=== PATIENT | male | born 1985 | race Caucasian/White ===

== ENCOUNTER 2018-10-18 09:37 | Emergency (ER) | payer OTHER, SELFPAY ==
[2018-10-18] MEDS ORDERED: ATROVENT IH ONE (11:19)
[2018-10-18] MEDS ORDERED: PROVENTIL IH ONE (11:19)
[2018-10-18] MEDS ORDERED: SOLU-Medrol IV ONE (11:19)
--- NOTE | 2018-10-18 11:19 | Emergency Department Report ---
HPI - General Chief Complaint: Upper Respiratory Infection Time Seen by Provider: 10/18/18 10:36 - HPI HPI: Interpretive service available This is a 33 yo male presented to ed with cough and difficulty breathing. He says that he had similar symptoms 2 weeks ago and he was admitted and sent home on albuterol, Levaquin and prednisone. Patient reports that he is having tightness similar to previous attack. He denies any medical problems. Denies any fever or chills. Denies any nausea or vomiting. Denies any abdominal pain or back pain. He reports that he has nasal congestion with runny nose and cough is worse at night. He did not follow up with a primary care physician. Denies smoking in or have any history of asthma or bronchitis. Patient previous note reflects that he had acute asthma. ED Past Medical Hx - Past Medical History Previous Medical History?: Yes Hx Congestive Heart Failure: No Hx Diabetes: No Hx Asthma: Yes Hx COPD: No - Surgical History Past Surgical History?: No - Family History Family history: no significant - Social History Smoking Status: Never Smoker Substance Use Type: None - Medications Home Medications: Home Medications Medication Instructions Recorded Confirmed Last Taken Type ALBUTEROL Inhaler(NF) [VENTOLIN 1 puff IH Q4H 30 Days #1 inha 08/21/18 Unknown Rx Inhaler(NF)] Budesonide/Formoterol Fumarate 10.2 gm IH BID 30 Days #1 08/21/18 Unknown Rx [Symbicort 160-4.5 Mcg Inhaler] hfa.aer.ad levoFLOXacin [Levaquin TAB] 750 mg PO Q24HR #3 tablet 08/21/18 Unknown Rx predniSONE [Deltasone] 50 mg PO QDAY #5 tab 08/21/18 Unknown Rx Albuterol Sulfate [Albuterol 0.63% 0.63 mg IH TID PRN #1 box 10/18/18 Unknown Rx NEBS] Ciprofloxacin HCl [Ciprofloxacin 500 mg PO Q12H #14 tab 10/18/18 Unknown Rx TAB] Ipratropium [Atrovent NEB] 0.5 mg IH Q8HRT #1 box 10/18/18 Unknown Rx Nebulizer and Compressor [Easy Air 1 each MC TID PRN #1 each 10/18/18 Unknown Rx Compressor Nebulizer] Prednisone [predniSONE 10 mg 10 mg PO .TAPER #1 tab.ds.pk 10/18/18 Unknown Rx (6-Day Pack, 21 Tabs)] ED Review of Systems ROS: Stated complaint: SHARRI/COUGHING Other details as noted in HPI Constitutional: denies: chills, fever Eyes: denies: eye discharge ENT: congestion (and they think if these develop physical work in a different hospital they wind shifted that they are doing fentanyl and patient was admitted 2 weeks ago for 3 days and come back with the same symptoms.). denies: ear pain, throat pain Respiratory: cough, shortness of breath. denies: SOB with exertion, SOB at rest, stridor (been on no wide Ntoday), wheezing Cardiovascular: denies: chest pain, palpitations, dyspnea on exertion, edema, syncope Gastrointestinal: denies: abdominal pain, nausea, vomiting Musculoskeletal: denies: back pain, joint swelling, arthralgia, myalgia Skin: denies: rash Neurological: denies: headache Physical Exam - Physical Exam Vital Signs: Vital Signs 10/18/18 09:49 Temperature 98.0 F Pulse Rate 84 Respiratory 18 Rate Blood Pressure 146/98 O2 Sat by Pulse 98 Oximetry General: This is a 33-year-old male well-nourished well-developed in mild distress. Physical Exam: Head: Normocephalic atraumatic Ears:BIateral TM congested without erythema and loss of bony landmarks. Aníbal EAC with normal exam. No mastoid bone tenderness. Mouth: Moist, no pharyngeal erythema or exudate . . UVULA midline and oral airways patent. No peritonsillar abscess Neck: Nontender to palpate, supple, normal range of motion. No adenopathy. No c- spine tenderness. Nose: Bilateral nasal mucosa congested/erythema with clear drainage. Maxillary and frontal sinuses non- tender to palpate. Eyes: Bilateral Sclerae and conjunctiva without injection. Bilateral pupils equal and reactive to light. Bilateral lids are normal. Normal accommodation.BEOMI Lungs: Wheezes in and rhonchi throughout lung hernandez with congested cough. Mild increased work of breathing . No chest wall tenderness CV: S1, S2. Regular rate and rhythm negative murmur. Capillary refill is less than 3 seconds Abdomen: Nontender to palpation in all quadrants: No guarding or rebound tenderness. Positive bowel sounds in all quadrants Extremity: No clubbing, cyanosis or edema. +2 pulses in all extremities and no neurovascular compromise Skin: Clean dry and intact, no rashes or lesions Psych: Normal mood and behavior ED Course Vital Signs 10/18/18 09:49 Temperature 98.0 F Pulse Rate 84 Respiratory 18 Rate Blood Pressure 146/98 O2 Sat by Pulse 98 Oximetry Vital Signs 10/18/18 10/18/18 10/18/18 09:49 11:38 14:11 Temperature 98.0 F 98.4 F Pulse Rate 84 89 Respiratory 18 22 20 Rate Blood Pressure 146/98 Blood Pressure 136/74 [Left] O2 Sat by Pulse 98 97 94 Oximetry - Reevaluation(s) Reevaluation #1: 10/18/18 12:39 Patient started on albuterol and Atrovent nebulizer and still going. Still with wheezes in and cough. Will start magnesium sulfate IV Reevaluation #2: 10/18/18 15:00 Patient not better after nebulizer and magnesium. He still wheezing and coughing. Decision to admit. I spoke with Dr. Kimble and he will see patient Labs order along with ABG. Reevaluation #3: 10/18/18 17:41 Patient ultrasound is better in 2 L nasal cannula. ABGs done and noted. Dr. Kimble assumed care of patient and will decide whether the patient will be admitted or will go home. Patient is stable and in no acute distress at present. He still has expiratory wheezes and upper lung hernandez. ED Medical Decision Making - Lab Data Result diagrams: 10/18/18 14:52 10/18/18 14:52 Lab Results 10/18/18 10/18/18 10/18/18 Range/Units 14:52 14:52 14:52 WBC 7.5 (4.5-11.0) K/mm3 RBC 5.13 H (3.65-5.03) M/mm3 Hgb 15.9 H (11.8-15.2) gm/dl Hct 48.4 H (35.5-45.6) % MCV 94 (84-94) fl MCH 31 (28-32) pg MCHC 33 (32-34) % RDW 13.6 (13.2-15.2) % Plt Count 385 (140-440) K/mm3 Lymph % (Auto) 13.7 (13.4-35.0) % [place] % (Auto) 1.8 (0.0-7.3) % Eos % (Auto) 7.9 H (0.0-4.3) % Baso % (Auto) 0.5 (0.0-1.8) % Lymph # 1.0 L (1.2-5.4) K/mm3 [place] # 0.1 (0.0-0.8) K/mm3 Eos # 0.6 H (0.0-0.4) K/mm3 Baso # 0.0 (0.0-0.1) K/mm3 Seg Neutrophils % 76.1 H (40.0-70.0) % Seg Neutrophils # 5.7 (1.8-7.7) K/mm3 POC ABG pH (7.35-7.45) POC ABG pCO2 (35-45) POC ABG pO2 (80-105) POC ABG HCO3 POC ABG Total CO2 POC ABG O2 Sat POC ABG Base Excess VBG pH 7.325 (7.320-7.420) FiO2 % Sodium 140 (137-145) mmol/L Potassium 3.4 L (3.6-5.0) mmol/L Chloride 101.3 (98-107) mmol/L Carbon Dioxide 25 (22-30) mmol/L Anion Gap 17 mmol/L BUN 17 (9-20) mg/dL Creatinine 0.6 L (0.8-1.5) mg/dL Estimated GFR > 60 ml/min BUN/Creatinine Ratio 28 % Glucose 178 H (75-100) mg/dL Calcium 9.0 (8.4-10.2) mg/dL Total Bilirubin 0.40 (0.1-1.2) mg/dL AST 22 (5-40) units/L ALT 22 (7-56) units/L Alkaline Phosphatase 135 H (35-129) units/L Total Protein 7.5 (6.3-8.2) g/dL Albumin 4.6 (3.9-5) g/dL Albumin/Globulin Ratio 1.6 % 10/18/18 Range/Units 15:26 WBC (4.5-11.0) K/mm3 RBC (3.65-5.03) M/mm3 Hgb (11.8-15.2) gm/dl Hct (35.5-45.6) % MCV (84-94) fl MCH (28-32) pg MCHC (32-34) % RDW (13.2-15.2) % Plt Count (140-440) K/mm3 Lymph % (Auto) (13.4-35.0) % [place] % (Auto) (0.0-7.3) % Eos % (Auto) (0.0-4.3) % Baso % (Auto) (0.0-1.8) % Lymph # (1.2-5.4) K/mm3 [place] # (0.0-0.8) K/mm3 Eos # (0.0-0.4) K/mm3 Baso # (0.0-0.1) K/mm3 Seg Neutrophils % (40.0-70.0) % Seg Neutrophils # (1.8-7.7) K/mm3 POC ABG pH 7.356 (7.35-7.45) POC ABG pCO2 37.7 (35-45) POC ABG pO2 65 L (80-105) POC ABG HCO3 21.1 POC ABG Total CO2 22 POC ABG O2 Sat 92 POC ABG Base Excess -4 VBG pH (7.320-7.420) FiO2 21 % Sodium (137-145) mmol/L Potassium (3.6-5.0) mmol/L Chloride (98-107) mmol/L Carbon Dioxide (22-30) mmol/L Anion Gap mmol/L BUN (9-20) mg/dL Creatinine (0.8-1.5) mg/dL Estimated GFR ml/min BUN/Creatinine Ratio % Glucose (75-100) mg/dL Calcium (8.4-10.2) mg/dL Total Bilirubin (0.1-1.2) mg/dL AST (5-40) units/L ALT (7-56) units/L Alkaline Phosphatase (35-129) units/L Total Protein (6.3-8.2) g/dL Albumin (3.9-5) g/dL Albumin/Globulin Ratio % - Radiology Data Radiology results: report reviewed X-ray 2 views dictated by radiologist and report reviewed by myself. Please see details below Findings [facility] [address] [place] [address] XRay Report Signed Patient: ALYSSA MELCHOR MR#: [id number] : 1985 Acct:[id number] Age/Sex: 33 / M ADM Date: 10/18/18 Loc: ED Attending Dr: Ordering Physician: JOVAN BERNABE Date of Service: 10/18/18 Procedure(s): XR chest routine 2V Accession Number(s): [id number] cc: JOVAN BERNABE Fluoro Time In Minutes: FINAL REPORT EXAM: XR CHEST ROUTINE 2V HISTORY: cough ?2 months TECHNIQUE: Two view chest PA and lateral PRIORS: None. FINDINGS: Cardiac and mediastinal contours are unremarkable. No focal pulmonary infiltrate is identified. No pleural fluid collection seen. Pulmonary vasculature is unremarkable. IMPRESSION: Negative two-view chest Transcribed By: CAESAR Dictated By: LARY RAMAN MD Electronically Authenticated By: LARY RAMAN MD Signed Date/Time: 10/18/181653 DD/ 52 TD/TT: 10/18/181652 - Medical Decision Making This is a 33-year-old male here reported that he is having cough and wheezing shortness of breath and he had similar episode a couple months ago where was admitted in the hospital. Please see notes for details Chest [id number] findings Labs: Patient had CBC, CMP, venous pH and CBC done and mild abdomen minor abnormalities noted in Dr. Kimble reviewed. Assessment/plan Bronchospasm recurrent-patient given albuterol 10 mg nebulizer, Atrovent 1 mg nebulizer and Solu-Medrol 1 injection 25 mg IV and upon reevaluation lung sounds are better but he still will reason. Patient pulse ox dropped to 94% he is not using his intercostal muscles or his work of breathing is back to normal. He was placed on 2 L nasal cannula and Dr. Kimble assume care of patient and is making decisions on patient disposition. - Differential Diagnosis PNA, PE, asthma versus bronchitis, URI with cough and congestion Critical care attestation.: If time is entered above; I have spent that time in minutes in the direct care of this critically ill patient, excluding procedure time. ED Disposition Clinical Impression: Bronchospasm with bronchitis, acute, URI with cough and congestion Disposition: OP ADMIT IP TO THIS HOSP Is pt being admited?: Yes Does the pt Need Aspirin: Yes Condition: Stable Prescriptions: Albuterol Sulfate [Albuterol 0.63% NEBS] 0.63 mg IH TID PRN #1 box PRN Reason: Wheezing Ciprofloxacin HCl [Ciprofloxacin TAB] 500 mg PO Q12H #14 tab Ipratropium [Atrovent NEB] 0.5 mg IH Q8HRT #1 box Nebulizer and Compressor [Easy Air Compressor Nebulizer] 1 each MC TID PRN #1 each PRN Reason: Wheezing Prednisone [predniSONE 10 mg (6-Day Pack, 21 Tabs)] 10 mg PO .TAPER #1 tab.ds.pk [facility] [Primary Care Provider] - 3-5 Days
[2018-10-18] MEDS ORDERED: MAGNESIUM SULFATE 2GM/50ML 2 GM/50 ML BAG IV ONE (12:41)
[2018-10-18 15:08] LABS: Basophils % (Auto) 0.5 % (0.0-1.8); Eosinophils # (Auto) 0.6 K/mm3 (0.0-0.4); Eosinophils % (Auto) 7.9 % (0.0-4.3); Hematocrit 48.4 % (35.5-45.6); Hemoglobin 15.9 gm/dl (11.8-15.2); Lymphocytes % (Auto) 13.7 % (13.4-35.0); Mean Corpuscular HGB Conc 33 % (32-34); Mean Corpuscular Volume 94 fl (84-94); Monocytes # (Auto) 0.1 K/mm3 (0.0-0.8); Monocytes % (Auto) 1.8 % (0.0-7.3); Platelet Count 385 K/mm3 (140-440); Red Blood Count 5.13 M/mm3 (3.65-5.03); Red Cell Distribution Width 13.6 % (13.2-15.2)
[2018-10-18 15:17] LABS: Alanine Aminotransferase 22 units/L (7-56); Albumin 4.6 g/dL (3.9-5); BUN/Creatinine Ratio 28; Blood Urea Nitrogen 17 mg/dL (9-20); Hemolysis Index 6
[2018-10-18 15:31] VITALS: BP 122/70
--- NOTE | 2018-10-18 16:54 | XRay Report ---
FINAL REPORT EXAM: XR CHEST ROUTINE 2V HISTORY: cough ?2 months TECHNIQUE: Two view chest PA and lateral PRIORS: None. FINDINGS: Cardiac and mediastinal contours are unremarkable. No focal pulmonary infiltrate is identified. No pleural fluid collection seen. Pulmonary vasculature is unremarkable. IMPRESSION: Negative two-view chest
[2018-10-18] MEDS ORDERED: LEVAQUIN 750MG/150ML 750 MG/150 ML BAG IV ONE (19:03)
--- NOTE | 2018-10-18 19:08 | Event Note ---
Date: 10/18/18 33 YO Male presents to ED for Evaluation. Pt seen and evaluated in ED and found to have Asthma Exacerbation. Pt treated with supportive care with resolution of symptoms. Pt medically optimized and back to usual state of health. Pt discharged home and instructed to F/U pcp 1wk, and Pulmonary prn. Head: Normocephalic atraumatic Ears:BIateral TM congested without erythema and loss of bony landmarks. Aníbal EAC with normal exam. No mastoid bone tenderness. Mouth: Moist, no pharyngeal erythema or exudate . . UVULA midline and oral airways patent. No peritonsillar abscess Neck: Nontender to palpate, supple, normal range of motion. No adenopathy. No c- spine tenderness. Nose: Bilateral nasal mucosa congested/erythema with clear drainage. Maxillary and frontal sinuses non- tender to palpate. Eyes: Bilateral Sclerae and conjunctiva without injection. Bilateral pupils equal and reactive to light. Bilateral lids are normal. Normal accommodation.BEOMI Lungs: CTA Bilaterally CV: S1, S2. Regular rate and rhythm negative murmur. Capillary refill is less than 3 seconds Abdomen: Nontender to palpation in all quadrants: No guarding or rebound tenderness. Positive bowel sounds in all quadrants Extremity: No clubbing, cyanosis or edema. +2 pulses in all extremities and no neurovascular compromise Skin: Clean dry and intact, no rashes or lesions Psych: Normal mood and behavior
[2018-10-18] MEDS ORDERED: PROVENTIL IH SCH (20:00)
[2018-10-18] MEDS ORDERED: ZOFRAN ONE (20:13)
[2018-10-18] MEDS ORDERED: ZOFRAN IV ONE (20:19)
--- NOTE | 2018-10-18 21:31 | Cat Scan Report ---
FINAL REPORT EXAM: CT ANGIO CHEST HISTORY: wheezing TECHNIQUE: CT chest CT angiogram with reconstructions PRIORS: None. FINDINGS: There is no evidence of filling defect within the central pulmonary vasculature to suggest the presen ce of acute pulmonary embolus. No evidence of mediastinal pathologic lymph node enlargement Heart and great vessels are unremarkable. The aorta is normal in caliber. No focal pulmonary infiltrate identified. No pleural fluid collection seen. No acute pulmonary abnor mality noted. Visualized portion of the upper abdomen demonstrates no acute change. IMPRESSION: Negative. No CT evidence of acute pulmonary embolus
== END 2018-10-18 21:56 | disposition admitted as inpatient to this hospital (09) ==
LOC: ED 09:37
DX: J40 Bronchitis, not specified as acute or chronic (principal); J06.9 Acute upper respiratory infection, unspecified
CPT/HCPCS: 36415; 71046; 71275; 80053; 82803; 82805; 85025; 94640; 96365; 96366; 96367; 96375; 99285; J1956; J2405; J2930; J3475; Q9967

== ENCOUNTER 2020-12-29 10:36 | Inpatient (IN) | payer OTHER, SELFPAY ==
[2020-12-29] MEDS ORDERED: methylPREDNISolone Sod Succinate 125 MG/2 ML INJ IM ONE (11:11)
[2020-12-29] MEDS ORDERED: ALBUTEROL 2.5 MG/3 ML NEBU IH ONE (11:11)
[2020-12-29] MEDS ORDERED: IPRATROPIUM 0.02% NEBU 2.5 ML IH ONE (11:11)
--- NOTE | 2020-12-29 11:49 | Emergency Department Report ---
ED General Adult HPI - General Chief complaint: Adult Asthma Stated complaint: CHEST PAIN Time Seen by Provider: 12/29/20 11:10 Source: EMS Mode of arrival: Ambulatory Limitations: Language Barrier - Related Data Home Medications Medication Instructions Recorded Confirmed Last Taken ALBUTEROL Inhaler(NF) [VENTOLIN 1 puff PO TID 10/18/18 10/18/18 Unknown Inhaler(NF)] Previous Rx's Medication Instructions Recorded Last Taken Type Albuterol Sulfate [Albuterol 0.63% 0.63 mg IH TID PRN #1 box 10/18/18 Unknown Rx NEBS] Ciprofloxacin HCl [Ciprofloxacin 500 mg PO Q12H #14 tab 10/18/18 Unknown Rx TAB] Ipratropium [Atrovent NEB] 0.5 mg IH Q8HRT #1 box 10/18/18 Unknown Rx Nebulizer and Compressor [Easy Air 1 each MC TID PRN #1 each 10/18/18 Unknown Rx Compressor Nebulizer] Prednisone [predniSONE 10 mg 10 mg PO .TAPER #1 tab.ds.pk 10/18/18 Unknown Rx (6-Day Pack, 21 Tabs)] Allergies Allergy/AdvReac Type Severity Reaction Status Date / Time No Known Allergies Allergy Verified 10/18/18 09:38 ED Review of Systems ROS: Stated complaint: CHEST PAIN Other details as noted in HPI ED Past Medical Hx - Past Medical History Previous Medical History?: Yes Hx Congestive Heart Failure: No Hx Diabetes: No Hx Asthma: Yes Hx COPD: No - Social History Smoking Status: Never Smoker Substance Use Type: None - Medications Home Medications: Home Medications Medication Instructions Recorded Confirmed Last Taken Type ALBUTEROL Inhaler(NF) [VENTOLIN 1 puff PO TID 10/18/18 10/18/18 Unknown History Inhaler(NF)] Albuterol Sulfate [Albuterol 0.63% 0.63 mg IH TID PRN #1 box 10/18/18 Unknown Rx NEBS] Ciprofloxacin HCl [Ciprofloxacin 500 mg PO Q12H #14 tab 10/18/18 Unknown Rx TAB] Ipratropium [Atrovent NEB] 0.5 mg IH Q8HRT #1 box 10/18/18 Unknown Rx Nebulizer and Compressor [Easy Air 1 each MC TID PRN #1 each 10/18/18 Unknown Rx Compressor Nebulizer] Prednisone [predniSONE 10 mg 10 mg PO .TAPER #1 tab.ds.pk 10/18/18 Unknown Rx (6-Day Pack, 21 Tabs)] ED Physical Exam - General Limitations: Language Barrier Critical care attestation.: If time is entered above; I have spent that time in minutes in the direct care of this critically ill patient, excluding procedure time. ED Disposition Condition: Stable
[2020-12-29] MEDS ORDERED: MAGNESIUM SULFATE 2 GM/50 ML BAG IV ONE (12:17)
[2020-12-29] MEDS ORDERED: ONDANSETRON 4 MG/2 ML INJ ONE (12:28)
[2020-12-29] MEDS ORDERED: ONDANSETRON 4 MG/2 ML INJ IM ONE (12:34)
--- NOTE | 2020-12-29 12:50 | Event Note ---
ED Screening Note Date of service: 12/29/20 Time: 12:48 ED Screening Note: Patient presents with chest pain or shortness of breath Patient is Malay-speaking History of asthma On exam diffuse wheezing and rhonchi noted on lung exam Patient given Solu-Medrol and continuous DuoNeb however is still retracting This initial assessment/diagnostic orders/clinical plan/treatment(s) is/are subject to change based on patients health status, clinical progression and re- assessment by fellow clinical providers in the ED. Further treatment and workup at subsequent clinical providers discretion. Patient/guardian urged not to elope from the ED as their condition may be serious if not clinically assessed and managed. Initial orders include: Moved patient to main ED-discussed with charge nurse Carline X-ray pending
--- NOTE | 2020-12-29 13:30 | XRay Report ---
XR chest 1V ap INDICATION / CLINICAL INFORMATION: abnormal breath sounds. COMPARISON: 10/18/2018. FINDINGS: SUPPORT DEVICES: None. HEART /PULMONARY VASCULATURE: No significant abnormality. LUNGS / PLEURA: No significant pulmonary or pleural abnormality. No pneumothorax. ADDITIONAL FINDINGS: No significant additional findings. IMPRESSION: 1. No acute findings. Signer Name: Robert Ramirez MD Signed: 12/29/2020 1:26 PM Workstation Name: [id number]
[2020-12-29 14:13] LABS: Hematocrit 46.2 % (35.5-45.6); Hemoglobin 15.4 gm/dl (11.8-15.2); Mean Corpuscular HGB Conc 33 % (32-34); Mean Corpuscular Volume 94 fl (84-94); Platelet Count 366 K/mm3 (140-440); Red Blood Count 4.92 M/mm3 (3.65-5.03); Red Cell Distribution Width 13.4 % (13.2-15.2)
[2020-12-29] MEDS ORDERED: EPINEPHrine/PF 1 MG/1 ML INJ SUB-Q ONE (14:34)
[2020-12-29] MEDS ORDERED: NON-FORMULARY EACH (Albuterol Sulfate [Albuterol 0.63% Nebs] 0.63 MG/3 ML Vial.Neb) IH PRN (14:37)
--- NOTE | 2020-12-29 14:43 | Emergency Department Report ---
ED General Adult HPI - General Chief complaint: Adult Asthma Stated complaint: CHEST PAIN Time Seen by Provider: 12/29/20 11:10 Source: EMS Mode of arrival: Ambulatory Limitations: Language Barrier - History of Present Illness Initial comments: The patient presents to the emergency department with a chief complaint of shortness of breath. 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 Patient states he has a history of asthma for the last week he has suffered from continuous asthma attacks. Patient states his inhalers at home are not helping. Patient is a moderate respiratory distress on my initial examination using his intercostal muscles for respirations. Patient denies any helen chest pain or abdominal pain. -: Gradual, week(s) (1) Consistency: constant Improves with: none Worsens with: none Associated Symptoms: denies other symptoms Treatments Prior to Arrival: none - Related Data Home Medications Medication Instructions Recorded Confirmed Last Taken ALBUTEROL Inhaler(NF) [VENTOLIN 1 puff PO TID 10/18/18 10/18/18 Unknown Inhaler(NF)] Previous Rx's Medication Instructions Recorded Last Taken Type Albuterol Sulfate [Albuterol 0.63% 0.63 mg IH TID PRN #1 box 10/18/18 Unknown Rx NEBS] Ciprofloxacin HCl [Ciprofloxacin 500 mg PO Q12H #14 tab 10/18/18 Unknown Rx TAB] Ipratropium [Atrovent NEB] 0.5 mg IH Q8HRT #1 box 10/18/18 Unknown Rx Nebulizer and Compressor [Easy Air 1 each MC TID PRN #1 each 10/18/18 Unknown Rx Compressor Nebulizer] Prednisone [predniSONE 10 mg 10 mg PO .TAPER #1 tab.ds.pk 10/18/18 Unknown Rx (6-Day Pack, 21 Tabs)] Allergies Allergy/AdvReac Type Severity Reaction Status Date / Time No Known Allergies Allergy Verified 10/18/18 09:38 ED Review of Systems ROS: Stated complaint: CHEST PAIN Other details as noted in HPI Constitutional: denies: chills, fever Eyes: denies: eye pain, eye discharge, vision change ENT: denies: ear pain, throat pain Respiratory: shortness of breath, wheezing. denies: cough Cardiovascular: denies: chest pain, palpitations Endocrine: no symptoms reported Gastrointestinal: denies: abdominal pain, nausea, diarrhea Genitourinary: denies: urgency, dysuria Musculoskeletal: denies: back pain, joint swelling, arthralgia Skin: denies: rash, lesions Neurological: denies: headache, weakness, paresthesias Psychiatric: denies: anxiety, depression Hematological/Lymphatic: denies: easy bleeding, easy bruising ED Past Medical Hx - Past Medical History Previous Medical History?: Yes Hx Congestive Heart Failure: No Hx Diabetes: No Hx Asthma: Yes Hx COPD: No - Social History Smoking Status: Never Smoker Substance Use Type: None - Medications Home Medications: Home Medications Medication Instructions Recorded Confirmed Last Taken Type ALBUTEROL Inhaler(NF) [VENTOLIN 1 puff PO TID 10/18/18 10/18/18 Unknown History Inhaler(NF)] Albuterol Sulfate [Albuterol 0.63% 0.63 mg IH TID PRN #1 box 10/18/18 Unknown Rx NEBS] Ciprofloxacin HCl [Ciprofloxacin 500 mg PO Q12H #14 tab 10/18/18 Unknown Rx TAB] Ipratropium [Atrovent NEB] 0.5 mg IH Q8HRT #1 box 10/18/18 Unknown Rx Nebulizer and Compressor [Easy Air 1 each MC TID PRN #1 each 10/18/18 Unknown Rx Compressor Nebulizer] Prednisone [predniSONE 10 mg 10 mg PO .TAPER #1 tab.ds.pk 10/18/18 Unknown Rx (6-Day Pack, 21 Tabs)] ED Physical Exam - General Limitations: Language Barrier General appearance: alert, in distress (Moderate respiratory distress using accessory muscles for respiration) - Head Head exam: Present: atraumatic, normocephalic - Eye Eye exam: Present: normal appearance - ENT ENT exam: Present: mucous membranes moist - Neck Neck exam: Present: normal inspection - Respiratory Respiratory exam: Present: respiratory distress, decreased breath sounds (Decreased breath sounds with minimal movement of air with and expiratory wheezing) - Cardiovascular Cardiovascular Exam: Present: normal rhythm, tachycardia. Absent: systolic murmur, diastolic murmur, rubs, gallop - GI/Abdominal GI/Abdominal exam: Present: soft, normal bowel sounds. Absent: distended, tenderness - Rectal Rectal exam: Present: deferred - Extremities Exam Extremities exam: Present: normal inspection - Back Exam Back exam: Present: normal inspection - Neurological Exam Neurological exam: Present: alert, oriented X3, CN II-XII intact. Absent: motor sensory deficit - Psychiatric Psychiatric exam: Present: normal affect, normal mood - Skin Skin exam: Present: warm, dry, intact, normal color. Absent: rash ED Course Vital Signs 12/29/20 12/29/20 12/29/20 11:23 11:30 11:58 Temperature 98 F Pulse Rate 90 Pulse Rate [ 112 H Posterior Bilateral Throughout] Respiratory 20 Rate Respiratory 24 Rate [Posterior Bilateral Throughout] Blood Pressure Blood Pressure 157/99 [Right] O2 Sat by Pulse 97 97 Oximetry 12/29/20 12/29/20 12/29/20 12:00 12:31 12:45 Temperature Pulse Rate 106 H 101 H Pulse Rate [ Posterior Bilateral Throughout] Respiratory 26 H 25 H Rate Respiratory Rate [Posterior Bilateral Throughout] Blood Pressure 132/92 132/92 Blood Pressure [Right] O2 Sat by Pulse 98 90 96 Oximetry 12/29/20 12/29/20 12/29/20 13:09 14:42 14:55 Temperature Pulse Rate 96 H Pulse Rate [ Posterior Bilateral Throughout] Respiratory 18 19 Rate Respiratory Rate [Posterior Bilateral Throughout] Blood Pressure Blood Pressure 140/78 [Right] O2 Sat by Pulse 97 90 91 Oximetry ED Medical Decision Making - Lab Data Result diagrams: 12/29/20 13:56 12/29/20 13:56 Lab Results 12/29/20 Range/Units 13:56 WBC 12.4 H (4.5-11.0) K/mm3 RBC 4.92 (3.65-5.03) M/mm3 Hgb 15.4 H (11.8-15.2) gm/dl Hct 46.2 H (35.5-45.6) % MCV 94 (84-94) fl MCH 31 (28-32) pg MCHC 33 (32-34) % RDW 13.4 (13.2-15.2) % Plt Count 366 (140-440) K/mm3 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 On repeat examination the patient has had no improvement in his respiratory status. At this time subQ epinephrine was given. Critical Care Time: Yes Critical care time in (mins) excluding proc time.: 35 Critical care attestation.: If time is entered above; I have spent that time in minutes in the direct care of this critically ill patient, excluding procedure time. ED Disposition Clinical Impression: Status asthmaticus Disposition: [id number] OP ADMIT IP TO THIS HOSP Is pt being admited?: Yes Does the pt Need Aspirin: No Condition: Stable Referrals: PRIMARY CARE,MD [Primary Care Provider] - 3-5 Days
[2020-12-29 14:46] LABS: Total Cells Counted 100
[2020-12-29 14:47] LABS: Platelet Estimate Consistent w Auto; RBC Morphology Normal
[2020-12-29] MEDS ORDERED: ONDANSETRON 4 MG/2 ML INJ IV PRN (14:50)
[2020-12-29] MEDS ORDERED: ALBUTEROL 2.5 MG/3 ML NEBU IH PRN (14:50)
[2020-12-29] MEDS ORDERED: ACETAMINOPHEN 325 MG TAB PO PRN (14:50)
[2020-12-29 15:09] LABS: Blood Urea Nitrogen 11 mg/dL (9-20); Calcium 9.1 mg/dL (8.4-10.2); Hemolysis Index 14
[2020-12-29 15:12] LABS: BUN/Creatinine Ratio 22
[2020-12-29] MEDS: IPRATROPIUM 0.02% NEBU 2.5 ML IH SCH (15:12)
[2020-12-29 15:50] LABS: ABG HCO3 26.2 mmol/L (20.0-26.0); ABG Methemoglobin 0.6 % (0.0-1.5); ABG Oxygen Saturation 94.9 % (95.0-99.0); ABG PCO2 48.1 mm Hg; ABG PH 7.354 pH Units (7.350-7.450); ABG PO2 71.5 mm Hg (80.0-90.0)
--- NOTE | 2020-12-29 16:22 | History and Physical Report ---
History of Present Illness Date of admission: 12/29/20 14:51 Chief complaint: Cannot breathe History of present illness: 35 YO Male with Moderate Intermittent Asthma presents to ED for evaluation. Patient reports "I cannot breathe". Patient knowledges difficulty breathing over the last week. Patient knowledges increased symptoms in spite of outpatient medical management, increased nebulizer use with worsening symptoms. Patient transported to [facility] via private vehicle for further care and evaluation of the aforementioned symptoms. The patient was seen and evaluated in the emergency department. All lab and imaging studies reviewed. Patient found to have increased work of breathing. Patient is unable to speak in complete sentences. Patient is tripoding, sitting forward in bed, using accessory muscles to breathe. Patient has audible wheezes. Patient found to have a pulse oximetry of 88% which is consistent with acute hypoxemic respiratory failure secondary to asthma exacerbation. Patient placed in observation status and admitted to medical floor and treated with nebulizer therapy as well as IV steroid therapy and magnesium therapy with mild improvement in symptoms. No further history obtainable due to dyspnea. No reports of fever, chills, chest pain, palpitation, skin rash, recent ill contacts, or known exposure to COVID- 19. No prior admission for review. All medication listed at time of admission has been reconciled. Past History Past Medical History: other (See HPI) Past Surgical History: No surgical history, Other (Reviewed) Social history: single. denies: smoking, alcohol abuse, prescription drug abuse Family history: hypertension Medications and Allergies Allergies Allergy/AdvReac Type Severity Reaction Status Date / Time No Known Allergies Allergy Verified 10/18/18 09:38 Home Medications Medication Instructions Recorded Confirmed Last Taken Type ALBUTEROL Inhaler(NF) [VENTOLIN 1 puff PO TID 10/18/18 10/18/18 12/29/20 History Inhaler(NF)] Albuterol Sulfate [Albuterol 0.63% 0.63 mg IH TID PRN #1 box 10/18/18 12/29/20 12/29/20 Rx NEBS] Ciprofloxacin HCl [Ciprofloxacin 500 mg PO Q12H #14 tab 10/18/18 Unknown Rx TAB] Ipratropium [Atrovent NEB] 0.5 mg IH Q8HRT #1 box 10/18/18 Unknown Rx Nebulizer and Compressor [Easy Air 1 each MC TID PRN #1 each 10/18/18 Unknown Rx Compressor Nebulizer] Prednisone [predniSONE 10 mg 10 mg PO .TAPER #1 tab.ds.pk 10/18/18 Unknown Rx (6-Day Pack, 21 Tabs)] Active Meds: Active Medications Acetaminophen (Acetaminophen 325 Mg Tab) 650 mg PO Q4H PRN PRN Reason: Pain MILD(1-3)/Fever >100.5/YAÑEZ Albuterol (Albuterol 2.5 Mg/3 Ml Nebu) 2.5 mg IH Q4HRT PRN PRN Reason: Shortness Of Breath Ipratropium [place] (Ipratropium 0.02% Nebu 2.5 Ml) 0.5 mg IH Q8HRT DEEPTHI Methylprednisolone Sodium Succinate (Methylprednisolone Sod Succinate 40 Mg/1 Ml Inj) 40 mg IV Q8HR DEEPTHI Ondansetron HCl (Ondansetron 4 Mg/2 Ml Inj) 4 mg IV Q8H PRN PRN Reason: Nausea And Vomiting Sodium Chloride (Sodium Chloride 0.9% 10 Ml Flush Syringe) 10 ml IV BID DEEPTHI Sodium Chloride (Sodium Chloride 0.9% 10 Ml Flush Syringe) 10 ml IV PRN PRN PRN Reason: LINE FLUSH Review of Systems Constitutional: no weight loss, no weight gain, no fever, no chills Ears, nose, mouth and throat: no ear pain, no decreased hearing, no nose pain, no nasal congestion, no sinus pressure Cardiovascular: no chest pain, no orthopnea, no palpitations, no rapid/irregular heart beat, no edema Respiratory: cough, shortness of breath, wheezing, no excessive sputum, no pain, no pain on inspiration Gastrointestinal: no abdominal pain, no nausea, no vomiting, no diarrhea Genitourinary Male: no dysuria, no hematuria, no flank pain, no discharge, no urinary frequency, no urinary hesitancy Rectal: no pain, no incontinence, no bleeding Musculoskeletal: no neck stiffness, no neck pain, no shooting arm pain, no arm numbness/tingling, no low back pain, no shooting leg pain Integumentary: no rash, no pruritis, no redness, no wounds, no jaundice Neurological: no head injury, no transient paralysis, no paralysis, no pa rathesias, no numbness, no tingling, no syncope, no tremors Psychiatric: no anxiety, no change in sleep habits, no sleep disturbances, no hypersomnia, no change in appetite, no disorientation Endocrine: no cold intolerance, no polyphagia, no excessive thirst, no polyuria, no nocturia, no excessive sweating Hematologic/Lymphatic: no easy bruising, no easy bleeding Allergic/Immunologic: no urticaria, no allergic rhinitis, no wheezing Exam - Constitutional Vitals: Temp Pulse Resp BP Pulse Ox 98 F 96 H 19 140/78 91 12/29/20 11:58 12/29/20 14:42 12/29/20 14:55 12/29/20 14:42 12/29/20 14:55 General appearance: Present: mild distress, well-nourished - EENT Eyes: Present: PERRL ENT: hearing intact, clear oral mucosa - Neck Neck: Present: supple, normal ROM - Respiratory Respiratory effort: normal Respiratory: bilateral: CTA - Cardiovascular Heart Sounds: Present: S1 & S2. Absent: rub, click - Extremities Extremities: pulses symmetrical, No edema Peripheral Pulses: within normal limits - Abdominal General gastrointestinal: Present: soft, non-tender, non-distended, normal bowel sounds Male genitourinary: Present: normal - Integumentary Integumentary: Present: clear, warm, dry - Musculoskeletal Musculoskeletal: gait normal, strength equal bilaterally - Psychiatric Psychiatric: appropriate mood/affect, intact judgment & insight - Neurologic Neurologic: CNII-XII intact, moves all extremities Results - Labs CBC & Chem 7: 12/29/20 13:56 12/29/20 13:56 Labs: Abnormal lab results 12/29/20 12/29/20 12/29/20 Range/Units 13:56 13:56 15:18 WBC 12.4 H (4.5-11.0) K/mm3 Hgb 15.4 H (11.8-15.2) gm/dl Hct 46.2 H (35.5-45.6) % Seg Neuts % (Manual) 73.0 H (40.0-70.0) % Lymphocytes % (Manual) 12.0 L (13.4-35.0) % Eosinophils % (Manual) 11.0 H (0.0-4.3) % Seg Neutrophils # Man 9.1 H (1.8-7.7) K/mm3 Eosinophils # (Manual) 1.4 H (0.0-0.4) K/mm3 ABG pO2 71.5 L (80.0-90.0) mm Hg ABG HCO3 26.2 H (20.0-26.0) mmol/L ABG O2 Saturation 94.9 L (95.0-99.0) % Oxyhemoglobin 93.2 L (95.0-99.0) % Sodium 136 L (137-145) mmol/L Creatinine 0.5 L (0.8-1.3) mg/dL Glucose 121 H (75-100) mg/dL Assessment and Plan - Patient Problems (1) Acute hypoxemic respiratory failure Current Visit: Yes Status: Acute Plan to address problem: Chest x-ray, supplemental oxygen, pulse oximetry, nebulizer therapy, (2) Status asthmaticus Current Visit: Yes Status: Acute Qualifiers: Asthma severity: mild Asthma persistence: persistent Qualified Code(s): J45.32 - Mild persistent asthma with status asthmaticus Plan to address problem: Supplemental oxygen, pulse oximetry, nebulizer therapy, IV steroid therapy, IV magnesium therapy, supportive care. Patient counseled regarding avoidance of asthma triggers. (3) DVT prophylaxis Current Visit: Yes Status: Acute Plan to address problem: SCD to BLE while in bed, Pt is ambulatory
[2020-12-29] MEDS: methylPREDNISolone Sod Succinate 40 MG/1 ML INJ IV SCH (23:51)
[2020-12-30] MEDS: IPRATROPIUM 0.02% NEBU 2.5 ML IH SCH ×3 (00:52→16:14)
[2020-12-30 05:31] LABS: Basophils % (Auto) 0.1 % (0.0-1.8); Eosinophils % (Auto) 0.1 % (0.0-4.3); Hematocrit 46.3 % (35.5-45.6); Hemoglobin 15.3 gm/dl (11.8-15.2); Lymphocytes # (Auto) 1.2 K/mm3 (1.2-5.4); Mean Corpuscular HGB Conc 33 % (32-34); Mean Corpuscular Volume 95 fl (84-94); Monocytes # (Auto) 0.3 K/mm3 (0.0-0.8); Monocytes % (Auto) 2.9 % (0.0-7.3); Platelet Count 371 K/mm3 (140-440); Red Cell Distribution Width 13.4 % (13.2-15.2)
[2020-12-30] MEDS: methylPREDNISolone Sod Succinate 40 MG/1 ML INJ IV SCH ×3 (05:34→21:31)
[2020-12-30 05:43] LABS: Blood Urea Nitrogen 17 mg/dL (9-20); Calcium 9.4 mg/dL (8.4-10.2); Hemolysis Index 4
[2020-12-30 06:16] LABS: BUN/Creatinine Ratio 28
--- NOTE | 2020-12-30 10:50 | Progress Note ---
Assessment and Plan Assessment and plan: Acute hypoxemic respiratory failure Due to acute exacerbation of bronchial asthma Oxygen titrate O2 sats to more than 90% nebulizers IV steroids, inhalation steroids, and IV antibiotics, cough medicine Antihistamine, supportive care Acute exacerbation of bronchial asthma ; IV Levaquin, nebulizers, IV steroids, inhalation steroids Antihistamines, bronchodilators, supplemental oxygen Tapering dose of IV steroids Pulmonary consult if needed DVT prophylaxis SCD to BLE while in bed, Pt is ambulatory We will closely monitor the patient and adjust the management as needed Plan of care reviewed with the patient and his nurse History Interval history: I have seen and examined the patient at the bedside Admitted with acute exacerbation of bronchial asthma Patient in moderate shortness of breath, and wheeze Mild distress, vital signs reviewed, patient is afebrile Hospitalist Physical - Constitutional Vitals: Temp Pulse Resp BP Pulse Ox 97.6 F 91 H 20 114/77 92 12/30/20 04:02 12/30/20 07:55 12/30/20 09:12 12/30/20 04:02 12/30/20 09:12 General appearance: Present: mild distress, well-nourished - EENT Eyes: Present: PERRL, EOM intact - Neck Neck: Present: supple, normal ROM - Respiratory Respiratory effort: normal Respiratory: bilateral: diminished, wheezing, negative: rales, rhonchi - Cardiovascular Rhythm: regular Heart Sounds: Present: S1 & S2 - Extremities Extremities: no ischemia, No edema - Abdominal General gastrointestinal: soft, non-tender, non-distended, normal bowel sounds - Integumentary Integumentary: Present: clear, warm - Psychiatric Psychiatric: appropriate mood/affect, cooperative - Neurologic Neurologic: CNII-XII intact, moves all extremities Results - Labs CBC & Chem 7: 12/30/20 04:39 12/30/20 04:39 Labs: Laboratory Last Values WBC 9.3 K/mm3 (4.5-11.0) 12/30/20 04:39 RBC 4.90 M/mm3 (3.65-5.03) 12/30/20 04:39 Hgb 15.3 gm/dl (11.8-15.2) H 12/30/20 04:39 Hct 46.3 % (35.5-45.6) H 12/30/20 04:39 MCV 95 fl (84-94) H 12/30/20 04:39 MCH 31 pg (28-32) 12/30/20 04:39 MCHC 33 % (32-34) 12/30/20 04:39 RDW 13.4 % (13.2-15.2) 12/30/20 04:39 Plt Count 371 K/mm3 (140-440) 12/30/20 04:39 Lymph % (Auto) 13.0 % (13.4-35.0) L 12/30/20 04:39 [place] % (Auto) 2.9 % (0.0-7.3) 12/30/20 04:39 Eos % (Auto) 0.1 % (0.0-4.3) 12/30/20 04:39 Baso % (Auto) 0.1 % (0.0-1.8) 12/30/20 04:39 Lymph # (Auto) 1.2 K/mm3 (1.2-5.4) 12/30/20 04:39 [place] # (Auto) 0.3 K/mm3 (0.0-0.8) 12/30/20 04:39 Eos # (Auto) 0.0 K/mm3 (0.0-0.4) 12/30/20 04:39 Baso # (Auto) 0.0 K/mm3 (0.0-0.1) 12/30/20 04:39 Add Manual Diff Complete 12/29/20 13:56 Total Counted 100 12/29/20 13:56 Seg Neutrophils % 83.9 % (40.0-70.0) H 12/30/20 04:39 Seg Neuts % (Manual) 73.0 % (40.0-70.0) H 12/29/20 13:56 Lymphocytes % (Manual) 12.0 % (13.4-35.0) L 12/29/20 13:56 Monocytes % (Manual) 3.0 % (0.0-7.3) 12/29/20 13:56 Eosinophils % (Manual) 11.0 % (0.0-4.3) H 12/29/20 13:56 Basophils % (Manual) 1.0 % (0.0-1.8) 12/29/20 13:56 Nucleated RBC % Not Reportable 12/29/20 13:56 Seg Neutrophils # 7.8 K/mm3 (1.8-7.7) H 12/30/20 04:39 Seg Neutrophils # Man 9.1 K/mm3 (1.8-7.7) H 12/29/20 13:56 Band Neutrophils # 0.0 K/mm3 12/29/20 13:56 Lymphocytes # (Manual) 1.5 K/mm3 (1.2-5.4) 12/29/20 13:56 Abs React Lymphs (Man) 0.0 K/mm3 12/29/20 13:56 Monocytes # (Manual) 0.4 K/mm3 (0.0-0.8) 12/29/20 13:56 Eosinophils # (Manual) 1.4 K/mm3 (0.0-0.4) H 12/29/20 13:56 Basophils # (Manual) 0.1 K/mm3 (0.0-0.1) 12/29/20 13:56 Metamyelocytes # 0.0 K/mm3 12/29/20 13:56 Myelocytes # 0.0 K/mm3 12/29/20 13:56 Promyelocytes # 0.0 K/mm3 12/29/20 13:56 Blast Cells # 0.0 K/mm3 12/29/20 13:56 WBC Morphology Not Reportable 12/29/20 13:56 Hypersegmented Neuts Not Reportable 12/29/20 13:56 Hyposegmented Neuts Not Reportable 12/29/20 13:56 Hypogranular Neuts Not Reportable 12/29/20 13:56 Smudge Cells Not Reportable 12/29/20 13:56 Toxic Granulation Not Reportable 12/29/20 13:56 Toxic Vacuolation Not Reportable 12/29/20 13:56 Dohle Bodies Not Reportable 12/29/20 13:56 Pelger-Huet Anomaly Not Reportable 12/29/20 13:56 Dago Rods Not Reportable 12/29/20 13:56 Platelet Estimate Consistent w auto 12/29/20 13:56 Clumped Platelets Not Reportable 12/29/20 13:56 Plt Clumps, EDTA Not Reportable 12/29/20 13:56 Large Platelets Not Reportable 12/29/20 13:56 Giant Platelets Not Reportable 12/29/20 13:56 Platelet Satelliting Not Reportable 12/29/20 13:56 Plt Morphology Comment Not Reportable 12/29/20 13:56 RBC Morphology Normal 12/29/20 13:56 Dimorphic RBCs Not Reportable 12/29/20 13:56 Polychromasia Not Reportable 12/29/20 13:56 Hypochromasia Not Reportable 12/29/20 13:56 Poikilocytosis Not Reportable 12/29/20 13:56 Anisocytosis Not Reportable 12/29/20 13:56 Microcytosis Not Reportable 12/29/20 13:56 Macrocytosis Not Reportable 12/29/20 13:56 Spherocytes Not Reportable 12/29/20 13:56 Pappenheimer Bodies Not Reportable 12/29/20 13:56 Sickle Cells Not Reportable 12/29/20 13:56 Target Cells Not Reportable 12/29/20 13:56 Tear Drop Cells Not Reportable 12/29/20 13:56 Ovalocytes Not Reportable 12/29/20 13:56 Helmet Cells Not Reportable 12/29/20 13:56 [place] Bodies Not Reportable 12/29/20 13:56 [place] Rings Not Reportable 12/29/20 13:56 [place] Cells Not Reportable 12/29/20 13:56 Bite Cells Not Reportable 12/29/20 13:56 Crenated Cell Not Reportable 12/29/20 13:56 Elliptocytes Not Reportable 12/29/20 13:56 Acanthocytes (Spur) Not Reportable 12/29/20 13:56 Rouleaux Not Reportable 12/29/20 13:56 Hemoglobin C Crystals Not Reportable 12/29/20 13:56 Schistocytes Not Reportable 12/29/20 13:56 Malaria parasites Not Reportable 12/29/20 13:56 Raheel Bodies Not Reportable 12/29/20 13:56 Hem Pathologist Commnt No 12/29/20 13:56 ABG pH 7.354 pH Units (7.350-7.450) 12/29/20 15:18 ABG pCO2 48.1 mm Hg 12/29/20 15:18 ABG pO2 71.5 mm Hg (80.0-90.0) L 12/29/20 15:18 ABG HCO3 26.2 mmol/L (20.0-26.0) H 12/29/20 15:18 ABG O2 Saturation 94.9 % (95.0-99.0) L 12/29/20 15:18 ABG O2 Content 21.1 (0.0-44) 12/29/20 15:18 ABG Base Excess 0.0 mmol/L (-2.0-3.0) 12/29/20 15:18 ABG Hemoglobin 16.1 gm/dl (14.0-18.0) 12/29/20 15:18 ABG Carboxyhemoglobin 1.2 % (0.0-5.0) 12/29/20 15:18 ABG Methemoglobin 0.6 % (0.0-1.5) 12/29/20 15:18 Oxyhemoglobin 93.2 % (95.0-99.0) L 12/29/20 15:18 FiO2 28 % 12/29/20 15:18 Sodium 138 mmol/L (137-145) 12/30/20 04:39 Potassium 4.2 mmol/L (3.6-5.0) 12/30/20 04:39 Chloride 100.9 mmol/L (98-107) 12/30/20 04:39 Carbon Dioxide 26 mmol/L (22-30) 12/30/20 04:39 Anion Gap 15 mmol/L 12/30/20 04:39 BUN 17 mg/dL (9-20) 12/30/20 04:39 Creatinine 0.6 mg/dL (0.8-1.3) L 12/30/20 04:39 Estimated GFR > 60 ml/min 12/30/20 04:39 BUN/Creatinine Ratio 28 % 12/30/20 04:39 Glucose 143 mg/dL (75-100) H 12/30/20 04:39 Calcium 9.4 mg/dL (8.4-10.2) 12/30/20 04:39 Price/IV: Voiding Method Toilet Active Medications - Current Medications Current Medications: Generic Name Dose Route Start Last Admin Trade Name Freq PRN Reason Stop Dose Admin Acetaminophen 650 mg 12/29/20 14:50 Acetaminophen 325 Mg Tab PO Q4H PRN Pain MILD(1-3)/Fever >100.5/YAÑEZ Albuterol 2.5 mg 12/29/20 14:50 Albuterol 2.5 Mg/3 Ml Nebu IH Q4HRT PRN Shortness Of Breath Ipratropium [place] 0.5 mg 12/29/20 16:00 12/30/20 07:53 Ipratropium 0.02% Nebu 2.5 Ml IH 0.5 mg Q8HRT DEEPTHI Administration Methylprednisolone Sodium Succinate 40 mg 12/29/20 22:00 12/30/20 05:34 Methylprednisolone Sod Succinate 40 Mg/1 Ml Inj IV 40 mg Q8HR DEEPTHI Administration Ondansetron HCl 4 mg 12/29/20 14:50 Ondansetron 4 Mg/2 Ml Inj IV Q8H PRN Nausea And Vomiting Sodium Chloride 10 ml 12/29/20 22:00 12/30/20 09:11 Sodium Chloride 0.9% 10 Ml Flush Syringe IV 10 ml BID DEEPTHI Administration Sodium Chloride 10 ml 12/29/20 14:50 Sodium Chloride 0.9% 10 Ml Flush Syringe IV PRN PRN LINE FLUSH
[2020-12-30] MEDS ORDERED: guaiFENesin DM 200/20 MG ORAL LIQD 10 ML PO PRN (18:00)
[2020-12-30] MEDS ORDERED: FUROSEMIDE 40 MG/4 ML INJ IV SCH (18:00)
[2020-12-30] MEDS: CETIRIZINE 10 MG TAB PO SCH (19:28)
[2020-12-30] MEDS ORDERED: IPRATROPIUM 0.02% NEBU 2.5 ML IH SCH ×2 (20:00→20:30)
[2020-12-30] MEDS: ALBUTEROL 2.5 MG/3 ML NEBU IH SCH (20:16)
[2020-12-31] MEDS: methylPREDNISolone Sod Succinate 40 MG/1 ML INJ IV SCH ×3 (06:02→22:45)
[2020-12-31] MEDS: CETIRIZINE 10 MG TAB PO SCH (09:52)
[2020-12-31] MEDS: ALBUTEROL 2.5 MG/3 ML NEBU IH SCH ×3 (09:59→17:25)
[2020-12-31] MEDS: IPRATROPIUM 0.02% NEBU 2.5 ML IH SCH ×3 (09:59→17:24)
--- NOTE | 2020-12-31 10:27 | Progress Note ---
Assessment and Plan Assessment and plan: Acute hypoxemic respiratory failure Due to acute exacerbation of bronchial asthma Patient is in mild distress, using accessory muscles Oxygen titrate O2 sats to more than 90% nebulizers IV steroids, inhalation steroids, and IV antibiotics, cough medicine Antihistamine, supportive care Acute exacerbation of bronchial asthma ; IV Levaquin, nebulizers, IV steroids, inhalation steroids Antihistamines, bronchodilators, supplemental oxygen Tapering dose of IV steroids Pulmonary consult if needed PUI ; high suspicion for Covid isolation, hadley PCR test requested Follow report DVT prophylaxis SCD to BLE while in bed, Pt is ambulatory Closely monitor the patient and adjust management as needed Plan of care reviewed with the patient and his nurse We will closely monitor the patient and adjust the management as needed Plan of care reviewed with the patient and his nurse 12/30/2020; patient has severe respiratory distress, patient is using accessory muscles In mild distress, requiring 3 L of nasal cannula oxygen, continue nebs, steroids, antibiotics Supportive care 12/31/2020; patient feels slightly better, bilateral wheezing slightly improved still has accessory muscle usage Home O2 evaluation prior to discharge, oxygen set up if indicated, possible discharge in 1 to 2 days If stable, follow COVID-19 test History Interval history: I have seen and examined the patient at the bedside Patient PUI on isolation precautions , hadley PCR test is sent pending report Patient feels slightly better since yesterday, however still short of breath Using accessory muscles and in mild distress Vital signs noted Hospitalist Physical - Constitutional Vitals: Temp Pulse Resp BP Pulse Ox 98.6 F 71 18 113/79 95 12/31/20 04:30 12/31/20 04:30 12/31/20 10:00 12/31/20 04:30 12/31/20 10:00 General appearance: Present: mild distress, well-nourished, other (Patient is using respiratory accessory muscles. ) - EENT Eyes: Present: PERRL, EOM intact - Neck Neck: Present: supple, normal ROM - Respiratory Respiratory effort: labored Respiratory: bilateral: diminished, wheezing, negative: rales, rhonchi - Cardiovascular Rhythm: regular Heart Sounds: Present: S1 & S2 - Extremities Extremities: no ischemia, No edema - Abdominal General gastrointestinal: soft, non-tender, non-distended, normal bowel sounds - Integumentary Integumentary: Present: clear, warm - Psychiatric Psychiatric: appropriate mood/affect, cooperative, other (Anxious) - Neurologic Neurologic: moves all extremities Results - Labs CBC & Chem 7: 12/30/20 04:39 12/30/20 04:39 Labs: Laboratory Last Values WBC 9.3 K/mm3 (4.5-11.0) 12/30/20 04:39 RBC 4.90 M/mm3 (3.65-5.03) 12/30/20 04:39 Hgb 15.3 gm/dl (11.8-15.2) H 12/30/20 04:39 Hct 46.3 % (35.5-45.6) H 12/30/20 04:39 MCV 95 fl (84-94) H 12/30/20 04:39 MCH 31 pg (28-32) 12/30/20 04:39 MCHC 33 % (32-34) 12/30/20 04:39 RDW 13.4 % (13.2-15.2) 12/30/20 04:39 Plt Count 371 K/mm3 (140-440) 12/30/20 04:39 Lymph % (Auto) 13.0 % (13.4-35.0) L 12/30/20 04:39 [place] % (Auto) 2.9 % (0.0-7.3) 12/30/20 04:39 Eos % (Auto) 0.1 % (0.0-4.3) 12/30/20 04:39 Baso % (Auto) 0.1 % (0.0-1.8) 12/30/20 04:39 Lymph # (Auto) 1.2 K/mm3 (1.2-5.4) 12/30/20 04:39 [place] # (Auto) 0.3 K/mm3 (0.0-0.8) 12/30/20 04:39 Eos # (Auto) 0.0 K/mm3 (0.0-0.4) 12/30/20 04:39 Baso # (Auto) 0.0 K/mm3 (0.0-0.1) 12/30/20 04:39 Add Manual Diff Complete 12/29/20 13:56 Total Counted 100 12/29/20 13:56 Seg Neutrophils % 83.9 % (40.0-70.0) H 12/30/20 04:39 Seg Neuts % (Manual) 73.0 % (40.0-70.0) H 12/29/20 13:56 Lymphocytes % (Manual) 12.0 % (13.4-35.0) L 12/29/20 13:56 Monocytes % (Manual) 3.0 % (0.0-7.3) 12/29/20 13:56 Eosinophils % (Manual) 11.0 % (0.0-4.3) H 12/29/20 13:56 Basophils % (Manual) 1.0 % (0.0-1.8) 12/29/20 13:56 Nucleated RBC % Not Reportable 12/29/20 13:56 Seg Neutrophils # 7.8 K/mm3 (1.8-7.7) H 12/30/20 04:39 Seg Neutrophils # Man 9.1 K/mm3 (1.8-7.7) H 12/29/20 13:56 Band Neutrophils # 0.0 K/mm3 12/29/20 13:56 Lymphocytes # (Manual) 1.5 K/mm3 (1.2-5.4) 12/29/20 13:56 Abs React Lymphs (Man) 0.0 K/mm3 12/29/20 13:56 Monocytes # (Manual) 0.4 K/mm3 (0.0-0.8) 12/29/20 13:56 Eosinophils # (Manual) 1.4 K/mm3 (0.0-0.4) H 12/29/20 13:56 Basophils # (Manual) 0.1 K/mm3 (0.0-0.1) 12/29/20 13:56 Metamyelocytes # 0.0 K/mm3 12/29/20 13:56 Myelocytes # 0.0 K/mm3 12/29/20 13:56 Promyelocytes # 0.0 K/mm3 12/29/20 13:56 Blast Cells # 0.0 K/mm3 12/29/20 13:56 WBC Morphology Not Reportable 12/29/20 13:56 Hypersegmented Neuts Not Reportable 12/29/20 13:56 Hyposegmented Neuts Not Reportable 12/29/20 13:56 Hypogranular Neuts Not Reportable 12/29/20 13:56 Smudge Cells Not Reportable 12/29/20 13:56 Toxic Granulation Not Reportable 12/29/20 13:56 Toxic Vacuolation Not Reportable 12/29/20 13:56 Dohle Bodies Not Reportable 12/29/20 13:56 Pelger-Huet Anomaly Not Reportable 12/29/20 13:56 Dago Rods Not Reportable 12/29/20 13:56 Platelet Estimate Consistent w auto 12/29/20 13:56 Clumped Platelets Not Reportable 12/29/20 13:56 Plt Clumps, EDTA Not Reportable 12/29/20 13:56 Large Platelets Not Reportable 12/29/20 13:56 Giant Platelets Not Reportable 12/29/20 13:56 Platelet Satelliting Not Reportable 12/29/20 13:56 Plt Morphology Comment Not Reportable 12/29/20 13:56 RBC Morphology Normal 12/29/20 13:56 Dimorphic RBCs Not Reportable 12/29/20 13:56 Polychromasia Not Reportable 12/29/20 13:56 Hypochromasia Not Reportable 12/29/20 13:56 Poikilocytosis Not Reportable 12/29/20 13:56 Anisocytosis Not Reportable 12/29/20 13:56 Microcytosis Not Reportable 12/29/20 13:56 Macrocytosis Not Reportable 12/29/20 13:56 Spherocytes Not Reportable 12/29/20 13:56 Pappenheimer Bodies Not Reportable 12/29/20 13:56 Sickle Cells Not Reportable 12/29/20 13:56 Target Cells Not Reportable 12/29/20 13:56 Tear Drop Cells Not Reportable 12/29/20 13:56 Ovalocytes Not Reportable 12/29/20 13:56 Helmet Cells Not Reportable 12/29/20 13:56 [place] Bodies Not Reportable 12/29/20 13:56 [place] Rings Not Reportable 12/29/20 13:56 [place] Cells Not Reportable 12/29/20 13:56 Bite Cells Not Reportable 12/29/20 13:56 Crenated Cell Not Reportable 12/29/20 13:56 Elliptocytes Not Reportable 12/29/20 13:56 Acanthocytes (Spur) Not Reportable 12/29/20 13:56 Rouleaux Not Reportable 12/29/20 13:56 Hemoglobin C Crystals Not Reportable 12/29/20 13:56 Schistocytes Not Reportable 12/29/20 13:56 Malaria parasites Not Reportable 12/29/20 13:56 Raheel Bodies Not Reportable 12/29/20 13:56 Hem Pathologist Commnt No 12/29/20 13:56 ABG pH 7.354 pH Units (7.350-7.450) 12/29/20 15:18 ABG pCO2 48.1 mm Hg 12/29/20 15:18 ABG pO2 71.5 mm Hg (80.0-90.0) L 12/29/20 15:18 ABG HCO3 26.2 mmol/L (20.0-26.0) H 12/29/20 15:18 ABG O2 Saturation 94.9 % (95.0-99.0) L 12/29/20 15:18 ABG O2 Content 21.1 (0.0-44) 12/29/20 15:18 ABG Base Excess 0.0 mmol/L (-2.0-3.0) 12/29/20 15:18 ABG Hemoglobin 16.1 gm/dl (14.0-18.0) 12/29/20 15:18 ABG Carboxyhemoglobin 1.2 % (0.0-5.0) 12/29/20 15:18 ABG Methemoglobin 0.6 % (0.0-1.5) 12/29/20 15:18 Oxyhemoglobin 93.2 % (95.0-99.0) L 12/29/20 15:18 FiO2 28 % 12/29/20 15:18 Sodium 138 mmol/L (137-145) 12/30/20 04:39 Potassium 4.2 mmol/L (3.6-5.0) 12/30/20 04:39 Chloride 100.9 mmol/L (98-107) 12/30/20 04:39 Carbon Dioxide 26 mmol/L (22-30) 12/30/20 04:39 Anion Gap 15 mmol/L 12/30/20 04:39 BUN 17 mg/dL (9-20) 12/30/20 04:39 Creatinine 0.6 mg/dL (0.8-1.3) L 12/30/20 04:39 Estimated GFR > 60 ml/min 12/30/20 04:39 BUN/Creatinine Ratio 28 % 12/30/20 04:39 Glucose 143 mg/dL (75-100) H 12/30/20 04:39 Calcium 9.4 mg/dL (8.4-10.2) 12/30/20 04:39 Price/IV: Voiding Method Toilet Active Medications - Current Medications Current Medications: Generic Name Dose Route Start Last Admin Trade Name Freq PRN Reason Stop Dose Admin Acetaminophen 650 mg 12/29/20 14:50 12/31/20 08:13 Acetaminophen 325 Mg Tab PO 650 mg Q4H PRN Administration Pain MILD(1-3)/Fever >100.5/YAÑEZ Albuterol 2.5 mg 12/29/20 14:50 Albuterol 2.5 Mg/3 Ml Nebu IH Q4HRT PRN Shortness Of Breath Albuterol 2.5 mg 12/30/20 20:00 12/31/20 09:59 Albuterol 2.5 Mg/3 Ml Nebu IH 2.5 mg QIDRT DEEPTHI Administration Cetirizine HCl 10 mg 12/30/20 18:00 12/31/20 09:52 Cetirizine 10 Mg Tab PO 10 mg QDAY DEEPTHI Administration Guaifenesin 10 ml 12/30/20 18:00 12/31/20 08:13 Guaifenesin Dm 200/20 Mg Oral Liqd 10 Ml PO 10 ml Q4H PRN Administration Cough Levofloxacin/Dextrose 750 mg in 150 mls @ 100 mls/hr 12/30/20 18:00 12/30/20 19:27 Levaquin 750mg/150ml IV 100 mls/hr Q24H DEEPTHI Administration Protocol Ipratropium [place] 0.5 mg 12/31/20 08:00 12/31/20 09:59 Ipratropium 0.02% Nebu 2.5 Ml IH 0.5 mg QIDRT DEEPTHI Administration Methylprednisolone Sodium Succinate 40 mg 12/29/20 22:00 12/31/20 06:02 Methylprednisolone Sod Succinate 40 Mg/1 Ml Inj IV 40 mg Q8HR DEEPTHI Administration Ondansetron HCl 4 mg 12/29/20 14:50 Ondansetron 4 Mg/2 Ml Inj IV Q8H PRN Nausea And Vomiting Sodium Chloride 10 ml 12/29/20 22:00 12/31/20 09:53 Sodium Chloride 0.9% 10 Ml Flush Syringe IV 10 ml BID DEEPTHI Administration Sodium Chloride 10 ml 12/29/20 14:50 Sodium Chloride 0.9% 10 Ml Flush Syringe IV PRN PRN LINE FLUSH
[2020-12-31] MEDS: IPRATROPIUM/ALBUTEROL SULFATE 3 ML AMPUL.NEB IH SCH ×2 (16:50→20:38)
[2020-12-31] MEDS ORDERED: IPRATROPIUM/ALBUTEROL SULFATE 3 ML AMPUL.NEB IH SCH (17:00)
[2020-12-31] MEDS: ENOXAPARIN 40 MG/0.4 ML INJ SUB-Q SCH (22:46)
[2021-01-01] MEDS: methylPREDNISolone Sod Succinate 40 MG/1 ML INJ IV SCH ×3 (05:45→22:18)
[2021-01-01] MEDS: IPRATROPIUM/ALBUTEROL SULFATE 3 ML AMPUL.NEB IH SCH ×4 (08:09→23:08)
[2021-01-01] MEDS: CETIRIZINE 10 MG TAB PO SCH (11:02)
--- NOTE | 2021-01-01 11:37 | Progress Note ---
Assessment and Plan Assessment and plan: Assessment and Plan Assessment and plan: Acute hypoxemic respiratory failure Due to acute exacerbation of bronchial asthma Patient is in mild distress, using accessory muscles Oxygen titrate O2 sats to more than 90% nebulizers IV steroids, inhalation steroids, and IV antibiotics, cough medicine Antihistamine, supportive care Acute exacerbation of bronchial asthma ; IV Levaquin, nebulizers, IV steroids, inhalation steroids Antihistamines, bronchodilators, supplemental oxygen Tapering dose of IV steroids Pulmonary consult if needed PUI ; high suspicion for Covid isolation, hadley PCR test requested Follow report DVT prophylaxis SCD to BLE while in bed, Pt is ambulatory Closely monitor the patient and adjust management as needed Plan of care reviewed with the patient and his nurse We will closely monitor the patient and adjust the management as needed Plan of care reviewed with the patient and his nurse 12/30/2020; patient has severe respiratory distress, patient is using accessory muscles In mild distress, requiring 3 L of nasal cannula oxygen, continue nebs, steroids, antibiotics Supportive care 12/31/2020; patient feels slightly better, bilateral wheezing slightly improved still has accessory muscle usage Home O2 evaluation prior to discharge, oxygen set up if indicated, possible discharge in 1 to 2 days If stable, follow COVID-19 test 01/01/21 Patient is a still wheezing bilaterally. We will continue the current management, neb treatment and steroid. We will add singular 10 mg p.o. daily We will do home O2 evaluation before discharge Possible discharge planning in the morning Covid test is negative History Interval history: Patient is seen and examined the patient at the bedside Patient Covid test is negative. DC isolation Patient feels slightly better since yesterday, however still short of breath and wheezing Using accessory muscles and in mild distress Vital signs noted Hospitalist Physical - Constitutional Vitals: Temp Pulse Resp BP Pulse Ox 97.8 F 70 16 113/59 87 01/01/21 03:47 01/01/21 03:47 01/01/21 03:47 01/01/21 03:47 01/01/21 08:12 General appearance: Present: mild distress, well-nourished, other (Patient is using respiratory accessory muscles. ) Results - Labs CBC & Chem 7: 12/30/20 04:39 12/30/20 04:39 Labs: Laboratory Last Values WBC 9.3 K/mm3 (4.5-11.0) 12/30/20 04:39 RBC 4.90 M/mm3 (3.65-5.03) 12/30/20 04:39 Hgb 15.3 gm/dl (11.8-15.2) H 12/30/20 04:39 Hct 46.3 % (35.5-45.6) H 12/30/20 04:39 MCV 95 fl (84-94) H 12/30/20 04:39 MCH 31 pg (28-32) 12/30/20 04:39 MCHC 33 % (32-34) 12/30/20 04:39 RDW 13.4 % (13.2-15.2) 12/30/20 04:39 Plt Count 371 K/mm3 (140-440) 12/30/20 04:39 Lymph % (Auto) 13.0 % (13.4-35.0) L 12/30/20 04:39 [place] % (Auto) 2.9 % (0.0-7.3) 12/30/20 04:39 Eos % (Auto) 0.1 % (0.0-4.3) 12/30/20 04:39 Baso % (Auto) 0.1 % (0.0-1.8) 12/30/20 04:39 Lymph # (Auto) 1.2 K/mm3 (1.2-5.4) 12/30/20 04:39 Newton # (Auto) 0.3 K/mm3 (0.0-0.8) 12/30/20 04:39 Eos # (Auto) 0.0 K/mm3 (0.0-0.4) 12/30/20 04:39 Baso # (Auto) 0.0 K/mm3 (0.0-0.1) 12/30/20 04:39 Add Manual Diff Complete 12/29/20 13:56 Total Counted 100 12/29/20 13:56 Seg Neutrophils % 83.9 % (40.0-70.0) H 12/30/20 04:39 Seg Neuts % (Manual) 73.0 % (40.0-70.0) H 12/29/20 13:56 Lymphocytes % (Manual) 12.0 % (13.4-35.0) L 12/29/20 13:56 Monocytes % (Manual) 3.0 % (0.0-7.3) 12/29/20 13:56 Eosinophils % (Manual) 11.0 % (0.0-4.3) H 12/29/20 13:56 Basophils % (Manual) 1.0 % (0.0-1.8) 12/29/20 13:56 Nucleated RBC % Not Reportable 12/29/20 13:56 Seg Neutrophils # 7.8 K/mm3 (1.8-7.7) H 12/30/20 04:39 Seg Neutrophils # Man 9.1 K/mm3 (1.8-7.7) H 12/29/20 13:56 Band Neutrophils # 0.0 K/mm3 12/29/20 13:56 Lymphocytes # (Manual) 1.5 K/mm3 (1.2-5.4) 12/29/20 13:56 Abs React Lymphs (Man) 0.0 K/mm3 12/29/20 13:56 Monocytes # (Manual) 0.4 K/mm3 (0.0-0.8) 12/29/20 13:56 Eosinophils # (Manual) 1.4 K/mm3 (0.0-0.4) H 12/29/20 13:56 Basophils # (Manual) 0.1 K/mm3 (0.0-0.1) 12/29/20 13:56 Metamyelocytes # 0.0 K/mm3 12/29/20 13:56 Myelocytes # 0.0 K/mm3 12/29/20 13:56 Promyelocytes # 0.0 K/mm3 12/29/20 13:56 Blast Cells # 0.0 K/mm3 12/29/20 13:56 WBC Morphology Not Reportable 12/29/20 13:56 Hypersegmented Neuts Not Reportable 12/29/20 13:56 Hyposegmented Neuts Not Reportable 12/29/20 13:56 Hypogranular Neuts Not Reportable 12/29/20 13:56 Smudge Cells Not Reportable 12/29/20 13:56 Toxic Granulation Not Reportable 12/29/20 13:56 Toxic Vacuolation Not Reportable 12/29/20 13:56 Dohle Bodies Not Reportable 12/29/20 13:56 Pelger-Huet Anomaly Not Reportable 12/29/20 13:56 Dago Rods Not Reportable 12/29/20 13:56 Platelet Estimate Consistent w auto 12/29/20 13:56 Clumped Platelets Not Reportable 12/29/20 13:56 Plt Clumps, EDTA Not Reportable 12/29/20 13:56 Large Platelets Not Reportable 12/29/20 13:56 Giant Platelets Not Reportable 12/29/20 13:56 Platelet Satelliting Not Reportable 12/29/20 13:56 Plt Morphology Comment Not Reportable 12/29/20 13:56 RBC Morphology Normal 12/29/20 13:56 Dimorphic RBCs Not Reportable 12/29/20 13:56 Polychromasia Not Reportable 12/29/20 13:56 Hypochromasia Not Reportable 12/29/20 13:56 Poikilocytosis Not Reportable 12/29/20 13:56 Anisocytosis Not Reportable 12/29/20 13:56 Microcytosis Not Reportable 12/29/20 13:56 Macrocytosis Not Reportable 12/29/20 13:56 Spherocytes Not Reportable 12/29/20 13:56 Pappenheimer Bodies Not Reportable 12/29/20 13:56 Sickle Cells Not Reportable 12/29/20 13:56 Target Cells Not Reportable 12/29/20 13:56 Tear Drop Cells Not Reportable 12/29/20 13:56 Ovalocytes Not Reportable 12/29/20 13:56 Helmet Cells Not Reportable 12/29/20 13:56 [place] Bodies Not Reportable 12/29/20 13:56 [place] Rings Not Reportable 12/29/20 13:56 Clara Cells Not Reportable 12/29/20 13:56 Bite Cells Not Reportable 12/29/20 13:56 Crenated Cell Not Reportable 12/29/20 13:56 Elliptocytes Not Reportable 12/29/20 13:56 Acanthocytes (Spur) Not Reportable 12/29/20 13:56 Rouleaux Not Reportable 12/29/20 13:56 Hemoglobin C Crystals Not Reportable 12/29/20 13:56 Schistocytes Not Reportable 12/29/20 13:56 Malaria parasites Not Reportable 12/29/20 13:56 Raheel Bodies Not Reportable 12/29/20 13:56 Hem Pathologist Commnt No 12/29/20 13:56 ABG pH 7.354 pH Units (7.350-7.450) 12/29/20 15:18 ABG pCO2 48.1 mm Hg 12/29/20 15:18 ABG pO2 71.5 mm Hg (80.0-90.0) L 12/29/20 15:18 ABG HCO3 26.2 mmol/L (20.0-26.0) H 12/29/20 15:18 ABG O2 Saturation 94.9 % (95.0-99.0) L 12/29/20 15:18 ABG O2 Content 21.1 (0.0-44) 12/29/20 15:18 ABG Base Excess 0.0 mmol/L (-2.0-3.0) 12/29/20 15:18 ABG Hemoglobin 16.1 gm/dl (14.0-18.0) 12/29/20 15:18 ABG Carboxyhemoglobin 1.2 % (0.0-5.0) 12/29/20 15:18 ABG Methemoglobin 0.6 % (0.0-1.5) 12/29/20 15:18 Oxyhemoglobin 93.2 % (95.0-99.0) L 12/29/20 15:18 FiO2 28 % 12/29/20 15:18 Sodium 138 mmol/L (137-145) 12/30/20 04:39 Potassium 4.2 mmol/L (3.6-5.0) 12/30/20 04:39 Chloride 100.9 mmol/L (98-107) 12/30/20 04:39 Carbon Dioxide 26 mmol/L (22-30) 12/30/20 04:39 Anion Gap 15 mmol/L 12/30/20 04:39 BUN 17 mg/dL (9-20) 12/30/20 04:39 Creatinine 0.6 mg/dL (0.8-1.3) L 12/30/20 04:39 Estimated GFR > 60 ml/min 12/30/20 04:39 BUN/Creatinine Ratio 28 % 12/30/20 04:39 Glucose 143 mg/dL (75-100) H 12/30/20 04:39 Calcium 9.4 mg/dL (8.4-10.2) 12/30/20 04:39 Coronavirus (PCR) Negative (Negative) 12/30/20 09:15 Price/IV: Voiding Method Toilet Active Medications - Current Medications Current Medications: Generic Name Dose Route Start Last Admin Trade Name Freq PRN Reason Stop Dose Admin Acetaminophen 650 mg 12/29/20 14:50 12/31/20 08:13 Acetaminophen 325 Mg Tab PO 650 mg Q4H PRN Administration Pain MILD(1-3)/Fever >100.5/YAÑEZ Albuterol 2.5 mg 12/29/20 14:50 Albuterol 2.5 Mg/3 Ml Nebu IH Q4HRT PRN Shortness Of Breath Albuterol/Ipratropium 1 ampul 12/31/20 16:52 01/01/21 08:09 Ipratropium/Albuterol Sulfate 3 Ml Ampul.Neb IH 1 ampul TIDRT DEEPTHI Administration Cetirizine HCl 10 mg 12/30/20 18:00 01/01/21 11:02 Cetirizine 10 Mg Tab PO 10 mg QDAY DEEPTHI Administration Enoxaparin Sodium 40 mg 12/31/20 22:00 12/31/20 22:46 Enoxaparin 40 Mg/0.4 Ml Inj SUB-Q 40 mg QDAY@2200 DEEPTHI Administration Protocol Guaifenesin 10 ml 12/30/20 18:00 12/31/20 08:13 Guaifenesin Dm 200/20 Mg Oral Liqd 10 Ml PO 10 ml Q4H PRN Administration Cough Levofloxacin 750 mg 01/01/21 15:00 Levofloxacin 750 Mg Tab PO Q24H DEEPTHI Protocol Methylprednisolone Sodium Succinate 40 mg 12/29/20 22:00 01/01/21 05:45 Methylprednisolone Sod Succinate 40 Mg/1 Ml Inj IV 40 mg Q8HR DEEPTHI Administration Ondansetron HCl 4 mg 12/29/20 14:50 Ondansetron 4 Mg/2 Ml Inj IV Q8H PRN Nausea And Vomiting Sodium Chloride 10 ml 12/29/20 22:00 01/01/21 11:02 Sodium Chloride 0.9% 10 Ml Flush Syringe IV 10 ml BID DEEPTHI Administration Sodium Chloride 10 ml 12/29/20 14:50 Sodium Chloride 0.9% 10 Ml Flush Syringe IV PRN PRN LINE FLUSH Nutrition/Malnutrition Assess - Malnutrition Assessment Minimum of two criteria: No - Attestation Statement I have reviewed and agreed w/ Malnutrition eval & tx plan: Yes
[2021-01-01] MEDS ORDERED: levoFLOXacin 750 MG TAB PO SCH (15:00)
--- NOTE | 2021-01-01 17:06 | Electrocardiograph Report ---
[facility] Test Date: 2020-12-29 Test Time: 10:48:31 Pat Name: ALYSSA MELCHOR Department: Room: A376 1 Gender: M Car Inspector: LAZARO : 1985 Requested By: KEVEN GERARDO Order Number: [id number] Reading MD: Prasanna Shah Measurements Intervals Boley Rate: 90 P: 78 SC: 128 QRS: 60 QRSD: 121 T: 47 QT: 375 QTc: 459 Interpretive Statements Sinus rhythm Right bundle branch block Lateral infarct, recent No previous ECG available for comparison Electronically Signed On 01-01-2021 17:06:00 EDT by Prasanna Shah
[2021-01-01] MEDS: ENOXAPARIN 40 MG/0.4 ML INJ SUB-Q SCH (22:18)
[2021-01-02] MEDS: methylPREDNISolone Sod Succinate 40 MG/1 ML INJ IV SCH (05:41)
[2021-01-02] MEDS: IPRATROPIUM/ALBUTEROL SULFATE 3 ML AMPUL.NEB IH SCH ×2 (07:41→14:33)
[2021-01-02] MEDS: CETIRIZINE 10 MG TAB PO SCH (09:45)
--- NOTE | 2021-01-02 10:59 | Discharge Summary ---
Providers - Providers Date of Admission: 12/31/20 10:20 Date of discharge: 01/02/21 Attending physician: KEVEN GERARDO MD Primary care physician: ELECTROPHYSIOLOGY TECH Hospitalization Reason for admission: Acute hypoxic respiratory failure. Acute asthma exacerbation Condition: Stable Hospital course: History of present illness: 35 YO Male with Moderate Intermittent Asthma presents to ED for evaluation. Patient reports "I cannot breathe". Patient knowledges difficulty breathing over the last week. Patient knowledges increased symptoms in spite of outpatient medical management, increased nebulizer use with worsening symptoms. Patient transported to [facility] via private vehicle for further care and evaluation o f the aforementioned symptoms. The patient was seen and evaluated in the emergency department. All lab and imaging studies reviewed. Patient found to have increased work of breathing. Patient is unable to speak in complete sentences. Patient is tripoding, sitting forward in bed, using accessory muscles to breathe. Patient has audible wheezes. Patient found to have a pulse oximetry of 88% which is consistent with acute hypoxemic respiratory failure secondary to asthma exacerbation. Patient placed in observation status and admitted to medical floor and treated with nebulizer therapy as well as IV steroid therapy and magnesium therapy with mild improvement in symptoms. No further history obtainable due to dyspnea. No reports of fever, chills, chest pain, palpitation, skin rash, recent ill contacts, or known exposure to COVID- 19. No prior admission for review. All medication listed at time of admission has been reconciled. Assessment and Plan Assessment and plan: Acute hypoxemic respiratory failure Due to acute exacerbation of bronchial asthma Patient is in mild distress, using accessory muscles Oxygen titrate O2 sats to more than 90% nebulizers IV steroids, inhalation steroids, and IV antibiotics, cough medicine Antihistamine, supportive care Acute exacerbation of bronchial asthma ; IV Levaquin, nebulizers, IV steroids, inhalation steroids Antihistamines, bronchodilators, supplemental oxygen Tapering dose of IV steroids Pulmonary consult if needed PUI ; high suspicion for Covid isolation, hadley PCR test requested Follow report DVT prophylaxis SCD to BLE while in bed, Pt is ambulatory Closely monitor the patient and adjust management as needed Plan of care reviewed with the patient and his nurse We will closely monitor the patient and adjust the management as needed Plan of care reviewed with the patient and his nurse 12/30/2020; patient has severe respiratory distress, patient is using accessory muscles In mild distress, requiring 3 L of nasal cannula oxygen, continue nebs, steroids, antibiotics Supportive care 12/31/2020; patient feels slightly better, bilateral wheezing slightly improved still has accessory muscle usage Home O2 evaluation prior to discharge, oxygen set up if indicated, possible discharge in 1 to 2 days If stable, follow COVID-19 test 01/02/2021. Patient feels better. Overall her breathing is better. No coughing. No fever. Patient wants to go home. Patient needs home oxygen 2 to 3 L/min because walking test O2 sat dropped to 85% Case discussed with social security specialist for home oxygen. Patient instructed to take the medication as prescribed and follow-up with the pulmonary and a primary care doctor within a week. Patient Covid test is negative. Condition at the time of discharge is stable. Disposition: DC-01 TO HOME OR SELFCARE Final Discharge Diagnosis (Prints w/discharge instructions): Acute hypoxic respiratory failure. Acute asthma exacerbation Time spent for discharge: 40 Core Measure Documentation - Palliative Care Palliative Care/ Comfort Measures: Not Applicable - Core Measures Any of the following diagnoses?: none Exam - Constitutional Vitals: Temp Pulse Resp BP Pulse Ox 98.6 F 73 18 138/84 96 01/02/21 06:18 01/02/21 07:40 01/02/21 07:40 01/02/21 06:18 01/02/21 07:45 General appearance: Present: no acute distress, well-nourished - EENT Eyes: Present: PERRL ENT: hearing intact, clear oral mucosa - Neck Neck: Present: supple, normal ROM - Respiratory Respiratory effort: normal Respiratory: bilateral: wheezing - Cardiovascular Heart Sounds: Present: S1 & S2. Absent: rub, click - Extremities Extremities: pulses symmetrical, No edema Peripheral Pulses: within normal limits - Abdominal General gastrointestinal: Present: soft, non-tender, non-distended, normal bowel sounds Male genitourinary: Present: normal - Integumentary Integumentary: Present: clear, warm, dry - Musculoskeletal Musculoskeletal: gait normal, strength equal bilaterally - Psychiatric Psychiatric: appropriate mood/affect, intact judgment & insight - Neurologic Neurologic: CNII-XII intact, moves all extremities Plan Activity: no restrictions Diet: regular Follow up with: PRIMARY CARE, [Primary Care Provider] - 3-5 Days Prescriptions: Ipratropium/Albuterol Sulfate [DUONEB *Not for PRN Use*] 1 ampul IH TIDRT 30 Days ampul.neb
[2021-01-02 14:12] VITALS: BP 139/77
== END 2021-01-02 14:29 | disposition home or self-care (01) | DRG 189 ==
LOC: ED 10:36 → 3A 14:51 → OBSVTOIN 12-31 10:20
PROVIDERS: ADMIT Internal Medicine; ATTEND Hospitalist
PROC: 4A033R1 Measurement of Arterial Saturation, Peripheral, Percutaneous Approach (ICD-10-PCS; principal; 2020-12-29)
DX: J96.01 Acute respiratory failure with hypoxia (principal); J45.32 Mild persistent asthma with status asthmaticus; Z20.822 Contact with and (suspected) exposure to COVID-19; Z82.49 Family history of ischemic heart disease and other diseases of the circulatory system; Z79.899 Other long term (current) drug therapy
CPT/HCPCS: 36415; 71045; 80048; 82803; 85007; 85025; 93005; 94640; 94644; 96365; 96366; 96375; 96376; G0378; J0171; J1650; J1940; J1956; J2405; J2920; J2930; J3475; U0003